=== PATIENT | female | born 1975 | race Hispanic/Latino ===

== ENCOUNTER 2018-04-25 04:03 | Observation (INO) | payer BC ==
[2018-04-25] VITALS (12 sets, daily range): BP systolic 113–172; BP diastolic 60–98
[~2018-04-25] VITALS: Ht 167.6 cm; Wt 124.4 kg
[2018-04-25] MEDS ORDERED: ASPIRIN ONE (04:05)
--- NOTE | 2018-04-25 04:25 | PCM.EKG ---
[facility] Test Date: 2018-04-25 Test Time: 04:10:02 Pat Name: EVELYNE SOTOMAYOR Department: Room: 330 Gender: F [employer] Stripper: TIMOTHY : 1975 Requested By: FLAQUITO SEE Order Number: [id number] Reading MD: Flaquito SEE Measurements Intervals [place] Rate: 97 P: 68 CO: 142 QRS: 54 QRSD: 94 T: 49 QT: 342 QTc: 434 Interpretive Statements Normal sinus rhythm ST abnormality, possible digitalis effect Abnormal ECG No previous ECG available for comparison Electronically Signed On 04-28-2018 21:26:55 CDT by Flaquito SEE Please click the below link to view image of tracing.
--- NOTE | 2018-04-25 04:26 | NUR ---
NITRO 1 SPRAY NITRO GIVEN SUBLINGUAL AT THIS TIME VIA VERBAL ORDER FROM DR. SEE. BP 159/78 AT THIS TIME.
[2018-04-25] MEDS ORDERED: ASPIRIN PO STA (04:27)
--- NOTE | 2018-04-25 04:29 | ER.PDOC ---
General Chief Complaint: Chest Pain-Cardiac Nature Stated Complaint: CHEST PAIN Time seen by MD: 04:27 Source: patient Exam Limitations: no limitations History of Present Illness Initial Comments Chest pain Timing/Duration: 1-3 hours Severity/Quality: pressure Radiation: shoulders (left) Prior CP/Workup: No Prior Chest Pain Nitro Today/Relief: 0.4 mg x 1 Aspirin Today: 325 mg x 1 Associated Symptoms: shortness of breath Allergies: Coded Allergies: No Known Allergies (Unverified , 04/25/18) Past Medical History Medical History: hypertension Surgical History: no surgical history LMP (females 10-50): 3 weeks Social History Smoking: less than 1 pack/day Alcohol Use: occassionally Drug Use: none Constitutional: no symptoms reported EENTM: no symptoms reported Respiratory: see HPI Cardiovascular: see HPI Gastrointestinal: no symptoms reported Genitourinary: no symptoms reported All Other Systems: Reviewed and Negative Physical Exam General Appearance: No Apparent Distress, WD/WN, Obese Neck: Non-Tender, Full Range of Motion, Supple, Normal Inspection Respiratory: chest non-tender, lungs clear, normal breath sounds, no respiratory distress, no accessory muscle use Cardiovascular: Normal Peripheral Pulses, Regular Rate, Rhythm, No Edema, No Gallop, No JVD, No Murmur Gastrointestinal: Normal Bowel Sounds, No Organomegaly, No Pulsatile Mass, Non Tender, Soft Extremities: Normal Range of Motion, Non-Tender, Normal Inspection, No Pedal Edema, No Calf Tenderness, Normal Capillary Refill Neurologic/Psychiatric: client care representative II-XII NML as Tested, No Motor/Sensory Deficits, Alert, Normal Mood/Affect, Oriented x 3 Skin: Normal Color, Warm/Dry Lymphatic: No Adenopathy EKG/XRAY/CT/US EKG: NSR XRAY: chest (No active disease) Departure Time of Disposition: 05:18 Disposition: 09 ADMITTED INPATIENT Impression: Primary Impression: Chest pain Condition: Stable Referrals: PCP,UNKNOWN (PCP) PRIMARY CARE PROVIDER Comments Admitted to Dr. Palma Duration or Time Spent with Pa: 60 mins Problem Qualifiers Primary Impression: Chest pain Chest pain type: unspecified Qualified Codes: R07.9 - Chest pain, unspecified FLAQUITO SEE MD Apr 25, 2018 04:29
[2018-04-25] MEDS ORDERED: NITROSTAT SL PRN (04:30)
--- NOTE | 2018-04-25 04:33 | NUR ---
MARTIN PRADHAN IN PT ROOM WITH PORTABLE FOR CHEST XRAY AT THIS TIME.
[2018-04-25 04:37] LABS: BASOPHIL % 0.2 % (0.0-0.2); EOSINOPHIL # 0.1 10^3/uL (0.0-0.2); EOSINOPHIL % 0.5 % (0.0-5.0); HEMOGLOBIN 12.8 g/dL (12.0-15.0); LYMPHOCYTES % 15.1 % (24.0-44.0); MEAN CELL HGB 28.1 pg (26-34); MEAN CELL HGB CONCENTRATION 34.5 g/dL (33-37); MEAN CORP VOLUME 81.4 fL (78-100); MEAN PLATELET VOLUME 10.2 fL (7.8-11.0); MONOCYTES # 1.3 10^3/uL (0.3-0.8); MONOCYTES % 6.7 % (5.0-12.0); NEUTROPHIL # 15.1 10^3/uL (1.8-7.7); RED CELL DISTRIBUTION WIDTH 14.5 % (11.5-14.5); WHITE BLOOD CELL 19.6 10^3/uL (4.5-11.0)
--- NOTE | 2018-04-25 04:38 | NUR ---
NITRO 2ND SPRAY OF NITRO ADMINISTERED. PATIENT STATES NO PAIN RELIEF WITH FIRST SPRAY. HR [address] BP 125/60 RR 18 O2 93% ON RA PAIN REMAINS 8/ STERNAL CHEST STATES "I FEEL LIKE I NEED TO BELCH AND I CAN'T, ITS A LOT OF PRESSURE"
--- NOTE | 2018-04-25 04:41 | DIREP ---
PROCEDURE:CHEST 1 VIEW COMPARISON:None. INDICATIONS:Chest pain FINDINGS: LUNGS/PLEURA:No significant pulmonary parenchymal abnormalities. No effusions. VASCULATURE:Normal. Unremarkable pulmonary vasculature. CARDIAC:Normal. No cardiac silhouette abnormality or cardiomegaly. MEDIASTINUM:Normal. No visible mass or adenopathy. BONES:Normal. No fracture or visible bony lesion. OTHER:Negative. CONCLUSION:Normal exam. Do Dictated by: Wilfrido Snowden M.D. on 04/25/2018 at 04:39 AM
--- NOTE | 2018-04-25 04:52 | NUR ---
NITRO 3RD NITRO SPRAY ADMINISTERED. PATIENT STATES HER PAIN IS GETTING A LITTLE BIT BETTER, BUT IT ISN'T TOLERABLE. HR [address] BP 113/66 RR 18 O2 97% RA
[2018-04-25 05:04] LABS: ALANINE AMINOTRANSFERASE(ML) 19 U/L (12-78); ALKALINE PHOSPHATASE 120 U/L (50-136); ASPARTATE AMINO TRANSFERASE 16 U/L (0-35); CALCIUM 8.8 mg/dL (8.4-10.5); CARBON DIOXIDE 23.3 mmol/L (20.0-32); GLUCOSE 118 mg/dL (70-110)
--- NOTE | 2018-04-25 05:08 | NUR ---
PAIN STATES HER PAIN IS MUCH BETTER, NO GONE ALL THE WAY, BUT "TOLERABLE" DR SEE NOTIFIED OF COMPLETE LAB RESULTS.
--- NOTE | 2018-04-25 05:18 | NUR ---
SAM OMER MBA ON PHONE FOR DR. VARGAS. MESSAGE WAS LEFT FOR CALL BACK.
--- NOTE | 2018-04-25 06:00 | NUR ---
DR VARGAS CALLED BACK TO SPEAK WITH DR SEE ACCEPTED PATIENT ADMISSION FOR OB TO [place] ON TELE
[2018-04-25] MEDS ORDERED: LOVENOX SQ STA (06:07)
--- NOTE | 2018-04-25 06:07 | PRM.ACF1 ---
Date and Time Date and Time Time: 06:06 Admission Criteria Forms CHEST PAIN: OBSERVATION CARE USE THIS FORM ONLY WHEN INPATIENT ADMISSION CRITERIA ARE NOT MET. (Place X for any and all applicable criteria): Placement for observation care may be appropriate for a patient with chest pain and ANY ONE of the following (1)(2)(3)(4)(5): [x]I. Suspected cardiac ischemia with nondiagnostic initial evaluation (eg, ECG, cardiac biomarkers) requiring further immediate evaluation such as stress testing and repeat laboratory testing to clarify diagnosis []II. Other suspected diagnosis requiring observation and monitoring during diagnostic evaluation (eg, pulmonary embolus, aortic dissection, pneumothorax, pericarditis, GI bleeding) (6)(7)(8)(9) []III. Other observation care needs (Use General Criteria: Observation Care) The original [facility] [employer] content created by [facility] has been revised. The portions of the content which have been revised are identified through the use of italic text, and [facility] has neither reviewed nor approved the modified material. All other unmodified content is copyright [facility]. Please see references footnoted in the original [facility] [employer] edition 2016 FLAQUITO SEE MD Apr 25, 2018 06:07
[2018-04-25] MEDS ORDERED: LOVENOX SQ ONE (06:11)
--- NOTE | 2018-04-25 06:45 | NUR ---
MS ms requested waiting to bring patient until after report
--- NOTE | 2018-04-25 07:30 | NUR ---
[facility]IV[facility] PT ARRIVED TO FLOOR VIA W/C, NO S/S OF DISTRESS NOTED. V/S OBTAINED. CALL LIGHT WITHIN REACH. WILL CONT TO MONITOR.
--- NOTE | 2018-04-25 11:27 | PCM.EKG ---
[facility] Test Date: 2018-04-25 Test Time: 11:29:25 Pat Name: EVELYNE SOTOMAYOR Department: Room: 330 A Gender: F Nurse Rn Bsn: ANGELA : 1975 Requested By: KAIA VARGAS Order Number: [id number] Reading MD: Measurements Intervals [place] Rate: 85 P: 65 ME: 154 QRS: 45 QRSD: 94 T: 43 QT: 376 QTc: 447 Interpretive Statements Normal sinus rhythm Normal ECG No previous ECG available for comparison Please click the below link to view image of tracing.
--- NOTE | 2018-04-25 13:50 | NUR ---
D/C PT D/C INSTRUCTIONS GIVEN, VERBALIZED UNDERSTANDING. NO S/S OF DISTRESS NOTED. DR VARGAS NOTIFIED OF PT BLOOD PRESSURE AND STATED, "YES, I TOLD HER IF BLOOD PRESSURE STILL CONTINUES TO BE HIGH AT HOME THEN TO START TAKING BLOOD PRESSURE MEDS AGAIN." OFF OF FLOOR VIA W/C. BUCKLED INTO CAR.
--- NOTE | 2018-04-25 14:00 | HPH ---
ADMIT DATE: 04/25/2018 The patient is being placed under observation to Med/Surg. PRIMARY CARE PHYSICIAN: BIBIANA Ceja. ADMITTING DIAGNOSES: Chest pain with hypertension. HISTORY OF PRESENT ILLNESS: The patient is a very pleasant 43-year-old female who has underlying high blood pressure, but has not taken her medicines for 9 months now. She came into the ER last night with a chest pressure up to 3 hours prior to coming in. The pressure can radiate to her left shoulder. There was associated shortness of breath. No vomiting, no nausea, no diaphoresis. It was noted that her blood pressure was elevated, coming in. She was given 3 nitroglycerins and it did help her pain and by the time I saw her, she was chest pain free, but due to risk factors, I was asked to put her in the hospital and to follow her. She denies any chest pain currently. No fevers, no chills, no trauma. No recent travel. She has not eaten anything out of the ordinary and again she has not been on her blood pressure medicine for 9 months now. No diarrhea, no hemoptysis, no hematemesis, no melena, no dysuria. PAST MEDICAL HISTORY: Significant for hypertension. PAST SURGICAL HISTORY: None. ALLERGIES: No known drug allergies. MEDICATIONS: She reports supposed to be on some type of blood pressure medicine, but has been off for 9 months. FAMILY HISTORY: There is strong family history of heart disease. SOCIAL HISTORY: She does smoke about half a pack a day as a teenager and occasional alcohol, no drug use reported. PHYSICAL EXAMINATION: VITAL SIGNS: When she came in, temperature is 97.6, pulse rate 96, respirations 23, blood pressure 159/78, but it did come down to 118/71, O2 sats 97%. My physical exam is as follows: GENERAL: She is in no acute distress, awake, alert, oriented x 4. HEENT: Oropharynx is clear. Moist mucous membranes noted. No maxillary sinus tenderness. NECK: Supple, no JVD, no bruits. HEART: S1, S2 audible. No murmurs. LUNGS: Clear bilaterally. ABDOMEN: Good bowel sounds, soft abdomen, no rebound, no guarding, no masses. EXTREMITIES: No pitting edema. No petechia, no purpura, 2+ distal pulses are noted. LABORATORY DATA: Labs were drawn. She had cardiac enzymes negative x 1. Chemistry panel looked okay. CBC had a white count of 19,600. Coags were normal. D-dimer was negative. Chest x-ray was clear and troponin was negative. ASSESSMENT: We have this female with chest pain and risk factors. I will go ahead and follow her cardiac enzymes and repeat another EKG and follow her clinically to see how she does. Sara Palma MD DR: ALDEN/cary JOB# [id number]
--- NOTE | 2018-04-25 17:41 | DSH ---
DATE OF DISCHARGE: 04/25/2018 ADMITTING DIAGNOSIS: Chest pain with hypertension. DISCHARGE DIAGNOSIS: Chest pain, resolved with hypertension. HOSPITAL COURSE: As follows: The patient is a 43-year-old female who came in with some chest heaviness and pain with an elevated blood pressure. She was off her blood pressure medicines for 9 months. Her blood pressure actually has been very labile in the hospital, ranging from 118 up to 150. She is chest pain free currently. Cardiac enzymes have been negative. Her most recent EKG shows normal sinus rhythm. So, at this time, I talked to her about modifying risk factors and I have recommended her to quit smoking and follow her blood pressures at home to see if she needs to be back on her blood pressure medicines, but she will be discharged today. I have asked her to follow up with her primary care provider, BIBIANA Ceja next week, so that she can be referred to get an outpatient stress test done. Stay on a cardiac diet for now. Sara Palma MD DR: ALDEN/cary JOB# [id number]
== END 2018-04-25 13:50 | disposition home or self-care (01) ==
LOC: ER 04:03 → MS 06:06
PROVIDERS: ADMIT Pediatrics; ATTEND Pediatrics
DX: R07.89 Other chest pain (principal); R06.02 Shortness of breath; I10 Essential (primary) hypertension; F17.210 Nicotine dependence, cigarettes, uncomplicated
CPT/HCPCS: 36415; 71045; 80053; 82550; 82553; 83880; 84484 ×2; 85025; 85379; 85610; 85730; 93005 ×2; 96372; 99285; G0378 ×8; J1650